=== PATIENT | male | born 1935 | race Caucasian/White ===

== ENCOUNTER 2021-12-09 11:36 | Inpatient (IN) | payer MEDICARE, BC ==
[2021-12-09] MEDS ORDERED: Ondansetron 4 MG/2 ML SDV IV PRN (11:47)
[2021-12-09 12:57] LABS: CORONAVIRUS COVID-19 NAA NEGATIVE (NEGATIVE); RESPIRATORY SYNCYTIAL VIR NAA NEGATIVE (NEGATIVE)
[2021-12-09 13:08] LABS: CHLORIDE,CL 97 mmol/L (98-107); SODIUM,NA 132 mmol/L (136-145)
[2021-12-09 13:10] LABS: ANION GAP 11.6 mmol/L (5-15)
[2021-12-09] MEDS ORDERED: Magnesium Sulfate/Water 4 GM in Premix Bag 1 BAG IV ONE (13:47)
[2021-12-09] MEDS ORDERED: Iopamidol 755 Mg/ML 100 ML Bottle IVPUSH ONE (14:00)
[2021-12-09] MEDS ORDERED: Nitroglycerin 0.4 MG Tab.SL SL PRN (15:18)
[2021-12-09] MEDS: Azithromycin 250 MG Tab PO SCH (15:21)
[2021-12-09] MEDS: cefTRIAXone 1 GM Vial IVPUSH SCH (15:22)
[2021-12-09] MEDS: Enoxaparin 40 MG/0.4 ML Syringe SUBCUT SCH (16:57)
[2021-12-09] MEDS: Albuterol/Ipratropium 3.0-0.5 MG/3 ML Neb Soln NEB PRN (16:57)
[2021-12-10] MEDS: Azithromycin 250 MG Tab PO SCH (08:10)
[2021-12-10] MEDS: cefTRIAXone 1 GM Vial IVPUSH SCH (08:11)
[2021-12-10] MEDS: Omeprazole 20 MG Cap.CR PO SCH (08:11)
[2021-12-10] MEDS: Simvastatin 20 MG Tab PO SCH (08:11)
[2021-12-10] MEDS: Aspirin 81 MG Tab.EC PO SCH (08:11)
[2021-12-10] MEDS: Digoxin 250 MCG Tab PO SCH (08:12)
[2021-12-10] MEDS: Atenolol 50 MG Tab PO SCH (08:12)
[2021-12-10 08:20] LABS: CHLORIDE,CL 97 mmol/L (98-107); SODIUM,NA 131 mmol/L (136-145)
[2021-12-10 08:23] LABS: ANION GAP 9.3 mmol/L (5-15)
[2021-12-10] MEDS: Albuterol/Ipratropium 3.0-0.5 MG/3 ML Neb Soln NEB PRN ×3 (08:32→19:45)
[2021-12-10] MEDS: Enoxaparin 40 MG/0.4 ML Syringe SUBCUT SCH (18:10)
[2021-12-11] MEDS: Albuterol/Ipratropium 3.0-0.5 MG/3 ML Neb Soln NEB PRN ×2 (04:43→12:48)
[2021-12-11] MEDS: Digoxin 250 MCG Tab PO SCH (07:54)
[2021-12-11] MEDS: Omeprazole 20 MG Cap.CR PO SCH (07:56)
[2021-12-11] MEDS: Aspirin 81 MG Tab.EC PO SCH (07:56)
[2021-12-11] MEDS: Simvastatin 20 MG Tab PO SCH (07:57)
[2021-12-11] MEDS: Azithromycin 250 MG Tab PO SCH (07:57)
[2021-12-11] MEDS: Atenolol 50 MG Tab PO SCH (07:57)
[2021-12-11] MEDS: cefTRIAXone 1 GM Vial IVPUSH SCH (07:58)
[2021-12-11 08:27] LABS: CHLORIDE,CL 97 mmol/L (98-107); SODIUM,NA 131 mmol/L (136-145)
[2021-12-11 08:28] LABS: ANION GAP 8.4 mmol/L (5-15)
[2021-12-11] MEDS ORDERED: Magnesium Sulfate/Water 2 GM in Premix Bag 1 BAG IV ONE (09:41)
[2021-12-11] MEDS: methylPREDNISolone Sodium Succinate 40 MG/1 ML SDV IVPUSH SCH (10:52)
[2021-12-11] MEDS ORDERED: Sodium Chloride 0.65% Nasal Spray 45 ML Bottle NAS PRN (11:28)
[2021-12-11] MEDS: Enoxaparin 40 MG/0.4 ML Syringe SUBCUT SCH (17:10)
[2021-12-11] MEDS ORDERED: Acetaminophen 325 MG Tab PO PRN (18:18)
[2021-12-12 07:08] LABS: CHLORIDE,CL 96 mmol/L (98-107); SODIUM,NA 131 mmol/L (136-145)
[2021-12-12 07:09] LABS: ANION GAP 10.4 mmol/L (5-15)
[2021-12-12] MEDS: Azithromycin 250 MG Tab PO SCH (07:35)
[2021-12-12] MEDS: Simvastatin 20 MG Tab PO SCH (07:35)
[2021-12-12] MEDS: Digoxin 250 MCG Tab PO SCH (07:36)
[2021-12-12] MEDS: Omeprazole 20 MG Cap.CR PO SCH (07:36)
[2021-12-12] MEDS: Aspirin 81 MG Tab.EC PO SCH (07:36)
[2021-12-12] MEDS: Atenolol 50 MG Tab PO SCH (07:37)
[2021-12-12] MEDS: cefTRIAXone 1 GM Vial IVPUSH SCH (07:39)
[2021-12-12] MEDS: methylPREDNISolone Sodium Succinate 40 MG/1 ML SDV IVPUSH SCH (07:39)
[2021-12-12] MEDS ORDERED: predniSONE 20 MG Tab PO SCH (08:32)
[2021-12-12] MEDS ORDERED: Furosemide 40 MG Tab PO SCH (08:45)
[2021-12-12 11:40] VITALS: BP 152/83; PULSE 151
[2021-12-12] MEDS ORDERED: Amoxicillin/Clavulanate K 875-125 MG Tab PO SCH (20:00)
== END 2021-12-12 14:05 | disposition home or self-care (01) | DRG 178 ==
LOC: VM.MS 11:36
PROVIDERS: ADMIT Internal Medicine; ATTEND Internal Medicine
DX: J15.5 Pneumonia due to Escherichia coli (principal); J44.0 Chronic obstructive pulmonary disease with (acute) lower respiratory infection; J44.1 Chronic obstructive pulmonary disease with (acute) exacerbation; E87.1 Hypo-osmolality and hyponatremia; J15.4 Pneumonia due to other streptococci; I35.0 Nonrheumatic aortic (valve) stenosis; I48.91 Unspecified atrial fibrillation; I25.10 Atherosclerotic heart disease of native coronary artery without angina pectoris; E83.42 Hypomagnesemia; D64.9 Anemia, unspecified; Z20.822 Contact with and (suspected) exposure to COVID-19; K22.70 Barrett's esophagus without dysplasia; N40.0 Benign prostatic hyperplasia without lower urinary tract symptoms; E78.5 Hyperlipidemia, unspecified; Z79.899 Other long term (current) drug therapy; Z79.51 Long term (current) use of inhaled steroids; Z85.038 Personal history of other malignant neoplasm of large intestine; Z90.49 Acquired absence of other specified parts of digestive tract
CPT/HCPCS: 0241U; 36415; 71046; 71275; 80053; 83735; 83880; 84145; 84484; 85025; 85379; 86140; 87040; 87070; 87077; 87186; 87205; 93005; 94640; 97161-GP; A9270-GY; J0696; J1650; J2920; J3475; J7620-GY; Q9967

== ENCOUNTER 2022-01-09 10:30 | Emergency (ER) | payer MEDICARE, BC ==
[2022-01-09] MEDS: Sodium Chloride 0.9% 1,000 ML IV ONE (10:30)
[2022-01-09] MEDS ORDERED: Sodium Chloride 0.9% 10 ML Syringe FLUSH PRN (10:33)
[2022-01-09] MEDS: Pantoprazole 40 MG Vial IVPUSH ONE (10:45)
[2022-01-09 11:33] LABS: ANION GAP 5.1 mmol/L (5-15); CHLORIDE,CL 99 mmol/L (98-107); SODIUM,NA 132 mmol/L (136-145)
[2022-01-09] MEDS: Furosemide 40 MG/4 ML VIAL IV ONE (11:50)
[2022-01-09 11:54] LABS: CORONAVIRUS COVID-19 NAA NEGATIVE (NEGATIVE); RESPIRATORY SYNCYTIAL VIR NAA NEGATIVE (NEGATIVE)
[2022-01-09] MEDS: Sodium Chloride 0.9% 500 ML IV ONE (12:02)
[2022-01-09] MEDS: Iopamidol 612 MG/ML 100 ML Bottle IVPUSH ONE (12:15)
[2022-01-09 12:50] VITALS: BP 104/71; PULSE 110
[2022-01-09] MEDS: Magnesium Citrate Solution 296 ML Bottle PO ONE (14:02)
== END 2022-01-09 14:15 | disposition home or self-care (01) ==
LOC: VM.ED 10:30
DX: K56.41 Fecal impaction (principal); R19.7 Diarrhea, unspecified; I11.0 Hypertensive heart disease with heart failure; I50.9 Heart failure, unspecified; R55 Syncope and collapse; I25.10 Atherosclerotic heart disease of native coronary artery without angina pectoris; I48.91 Unspecified atrial fibrillation; E78.00 Pure hypercholesterolemia, unspecified; J44.9 Chronic obstructive pulmonary disease, unspecified; Z79.899 Other long term (current) drug therapy; Z88.8 Allergy status to other drugs, medicaments and biological substances; Z20.822 Contact with and (suspected) exposure to COVID-19
CPT/HCPCS: 0241U; 36415; 71045; 71260; 74177; 80053; 80162; 81001; 83605; 83735; 83880; 84484; 85025; 85610; 86140; 86850; 86900; 86901; 87040; 93005; 93010; 96374; 96375; 99284; 99285-25; C9113; J1940; J7030; Q9967

== ENCOUNTER 2022-06-21 13:07 | Emergency (ER) | payer MEDICARE, BC ==
[2022-06-21 13:19] VITALS: BP 141/72; PULSE 85
== END 2022-06-21 16:48 | disposition home or self-care (01) ==
LOC: VM.ED 13:07
DX: S51.011A Laceration without foreign body of right elbow, initial encounter (principal); S51.811A Laceration without foreign body of right forearm, initial encounter; I48.91 Unspecified atrial fibrillation; I25.10 Atherosclerotic heart disease of native coronary artery without angina pectoris; E78.00 Pure hypercholesterolemia, unspecified; I10 Essential (primary) hypertension; Z88.8 Allergy status to other drugs, medicaments and biological substances; Z79.899 Other long term (current) drug therapy; Z79.82 Long term (current) use of aspirin; W18.30XA Fall on same level, unspecified, initial encounter
CPT/HCPCS: 12006; 70450; 73060-RT; 73090-RT; 73110-RT; 99283

== ENCOUNTER 2022-10-14 13:17 | Emergency (ER) | payer MEDICARE, BC ==
[2022-10-14 14:12] LABS: CHLORIDE,CL 102 mmol/L (98-107); SODIUM,NA 139 mmol/L (136-145)
[2022-10-14 14:18] LABS: ANION GAP 10.1 mmol/L (5-15); ESTIMATED GFR 92 mL/min (>=60)
[2022-10-14] MEDS: methylPREDNISolone Sodium Succinate 125 MG/2 ML SDV IVPUSH ONE (14:56)
[2022-10-14] MEDS: cefTRIAXone 1 GM Vial IVPUSH ONE (15:43)
[2022-10-14] MEDS: Furosemide 40 MG/4 ML VIAL IV ONE (15:43)
[2022-10-14] MEDS: Take Home: Doxycycline 100 MG Tab, 4 Tab Pack PO ONE (16:00)
[2022-10-14] MEDS: Take Home: predniSONE 20 MG, 2 Tab Pack PO ONE (16:01)
[2022-10-14] MEDS: Furosemide 20 MG Tab PO ONE (16:01)
[2022-10-14 18:07] VITALS: BP 149/91; PULSE 91
== END 2022-10-14 16:05 | disposition home or self-care (01) ==
LOC: VM.ED 13:17
DX: J44.9 Chronic obstructive pulmonary disease, unspecified (principal); I11.0 Hypertensive heart disease with heart failure; I50.9 Heart failure, unspecified; I48.91 Unspecified atrial fibrillation; E78.00 Pure hypercholesterolemia, unspecified; Z79.899 Other long term (current) drug therapy; Z79.82 Long term (current) use of aspirin
CPT/HCPCS: 36415; 71045; 80053; 82550; 83605; 83615; 83880; 84145; 84484; 85025; 85379; 86140; 87040; 87070; 87077; 87205; 93005; 96374; 96375; 99285; A9270; J0696; J1940; J2930; J7512

== ENCOUNTER 2023-04-30 11:38 | Emergency (ER) | payer MEDICARE, BC ==
[2023-04-30 11:57] LABS: BASOPHILS PERCENT AUTO 0.2 % (0.2-1.2); EOSINOPHILS ABSOLUTE AUTO 0.1 x10^3/uL (0.0-0.5); HEMATOCRIT 30.4 % (40.0-52.0); HEMOGLOBIN 10.9 g/dL (14.0-18.0); IMMATURE GRAN ABSOLUTE AUTO 0.01 x10^3/uL (0.00-0.07); LYMPHOCYTES PERCENT AUTO 17.1 % (25.0-50.0); MEAN CORPUSCULAR HEMOGLOBIN 32.2 pg (26.0-32.0); MEAN CORPUSCULAR HGB CONC 35.9 g/dL (32.0-36.0); MEAN CORPUSCULAR VOLUME 89.9 fL (78.0-93.0); MONOCYTES ABSOLUTE AUTO 0.3 x10^3/uL (0.0-0.8); MONOCYTES PERCENT AUTO 5.1 % (2.0-11.0); NEUTROPHILS ABSOLUTE AUTO 4.6 x10^3/uL (1.8-7.7); NEUTROPHILS PERCENT AUTO 76.4 % (50.0-80.0); PLATELET COUNT,PLT 134 x10^3/uL (130-400); RED BLOOD CELL COUNT 3.38 x10^6/uL (4.5-6.0)
[2023-04-30] MEDS ORDERED: Sodium Chloride 0.9% 1,000 ML IV SCH (12:00)
[2023-04-30 12:13] LABS: INR 1.1 (2.0-3.5); PROTHROMBIN TIME 11.8 SEC (9.5-12.2)
[2023-04-30 12:19] LABS: A/G RATIO 1.23; ALBUMIN 3.2 g/dL (3.4-5.0); BILIRUBIN TOTAL 1.2 mg/dL (0.2-1.0); CALCIUM 8.4 mg/dL (8.5-10.1); CREATININE 0.6 mg/dL (0.70-1.30); EST CRCL DRUG DOSING (CG) 69.75 mL/min; POTASSIUM,K 4.1 mmol/L (3.5-5.1); PROTEIN TOTAL,TP 5.8 g/dL (6.4-8.2)
[2023-04-30] MEDS ORDERED: fentaNYL 50 MCG/ML SDV IVPUSH ONE ×2 (12:19→13:50)
[2023-04-30] MEDS ORDERED: Ondansetron 4 MG/2 ML SDV IVPUSH ONE (12:20)
[2023-04-30 12:21] LABS: ANION GAP 12.1 mmol/L (5-15)
[2023-04-30 14:26] VITALS: BP 142/68; PULSE 67
== END 2023-04-30 14:02 | disposition short-term general hospital (02) ==
LOC: VM.ED 11:38 → SUPCPDRO 11:38 → VM.ED 14:02
DX: S72.141A Displaced intertrochanteric fracture of right femur, initial encounter for closed fracture (principal); I48.91 Unspecified atrial fibrillation; I25.10 Atherosclerotic heart disease of native coronary artery without angina pectoris; E78.00 Pure hypercholesterolemia, unspecified; I11.0 Hypertensive heart disease with heart failure; I50.9 Heart failure, unspecified; J44.9 Chronic obstructive pulmonary disease, unspecified; Z88.8 Allergy status to other drugs, medicaments and biological substances; Z79.899 Other long term (current) drug therapy; Z79.82 Long term (current) use of aspirin; W19.XXXA Unspecified fall, initial encounter
CPT/HCPCS: 36415; 80053; 85025; 85610; 96374; 96375; 96376; 99284; 99285-25; J2405; J3010; J7030